=== PATIENT | female | born 1995 | race Caucasian/White ===

== ENCOUNTER → 2017-02-13 | Outpatient (CLI) | payer BC ==
[2017-02-13 10:53] LABS: CHLORIDE,CL 105 mmol/L (98-110); SODIUM,NA 136 mmol/L (136-146)
== END | disposition home or self-care (01) ==
LOC: MW.CHFP 09:47
PROVIDERS: ATTEND Physician Assistant
DX: E86.0 Dehydration (principal)
CPT/HCPCS: 36415; 80053; 83690; 85025

== ENCOUNTER → 2017-02-15 | Outpatient (CLI) | payer BC | LOC: MW.CHIM 11:09 | PROVIDERS: ATTEND Internal Medicine | DX: Z00.00 Encounter for general adult medical examination without abnormal findings (principal); R11.2 Nausea with vomiting, unspecified; N23 Unspecified renal colic | CPT/HCPCS: 81001; 81025 ==

== ENCOUNTER 2017-11-15 20:56 | Emergency (ER) | payer MEDICAID ==
--- NOTE | 2017-11-15 21:23 | EDM.PDOC ---
ED HPI GENERAL MEDICAL PROBLEM - General Chief Complaint: Respiratory Problem Stated Complaint: PT HAS FLU SYMPTOMS Time Seen by Provider: 11/15/17 21:14 - History of Present Illness INITIAL COMMENTS - FREE TEXT/NARRATIVE: HISTORY AND PHYSICAL: History of present illness: Patient 22-year-old female is approximately 20 weeks presents with concern of cough congestion and body aches. She's had no vaginal discharge bleeding abdominal pain or other concern Review of systems: As per history of present illness and below otherwise all systems reviewed and negative. Past medical history: As per history of present illness and as reviewed below otherwise noncontributory. Surgical history: As per history of present illness and as reviewed below otherwise noncontributory. Social history: No reported history of drug or alcohol abuse. Family history: As per history of present illness and as reviewed below otherwise noncontributory. Physical exam: HEENT: Atraumatic, normocephalic, pupils reactive, negative for conjunctival pallor or scleral icterus, mucous membranes moist, throat clear, neck supple, nontender, trachea midline. Lungs: Clear to auscultation, breath sounds equal bilaterally, chest nontender. Heart: S1S2, regular, negative for clicks, rubs, or JVD. Abdomen: Soft, nondistended, nontender. Negative for masses or hepatosplenomegaly. Negative for costovertebral tenderness. Pelvis: Stable nontender. Genitourinary: Deferred. Rectal: Deferred. Extremities: Atraumatic, negative for cords or calf pain. Neurovascular unremarkable. Neuro: Awake, alert, oriented. Cranial nerves II through XII unremarkable. Cerebellum unremarkable. Motor and sensory unremarkable throughout. Exam nonfocal. Diagnostics: Influenza screen Therapeutics: None Impression: # 1 viral syndrome #2 history 20 week intrauterine Definitive disposition and diagnosis as appropriate pending reevaluation and review of above. generalized Pain Score (Numeric/FACES): 7 - Related Data Allergies Allergy/AdvReac Type Severity Reaction Status Date / Time No Known Allergies Allergy Verified 11/15/17 21:13 Home Meds: Home Meds Pnv No.122/Iron/Folic Acid [ Multi Tablet] 1 tab PO DAILY 11/15/17 [ History] ED ROS GENERAL - Review of Systems Review Of Systems: ROS reveals no pertinent complaints other than HPI. ED EXAM, GENERAL - Physical Exam Exam: See Below (dictation) Course - Vital Signs Last Recorded V/S: Last Vital Signs Temp 36.6 C 11/15/17 21:14 Pulse 118 H 11/15/17 21:14 Resp 19 11/15/17 21:14 BP 113/61 11/15/17 21:14 Pulse Ox 97 11/15/17 21:14 Departure - Departure Time of Disposition: 22:00 Disposition: Home, Self-Care 01 Condition: Good Clinical Impression: Influenza - Discharge Information Referrals: PCP,None [Primary Care Provider] - Forms: ED Department Discharge Additional Instructions: The following information is given to patients seen in the emergency department who are being discharged to home. This information is to outline your options for follow-up care. We provide all patients seen in our emergency department with a follow-up referral. The need for follow-up, as well as the timing and circumstances, are variable depending upon the specifics of your emergency department visit. If you don't have a primary care physician on staff, we will provide you with a referral. We always advise you to contact your personal physician following an emergency department visit to inform them of the circumstance of the visit and for follow-up with them and/or the need for any referrals to a consulting specialist. The emergency department will also refer you to a specialist when appropriate. This referral assures that you have the opportunity for followup care with a specialist. All of these measure are taken in an effort to provide you with optimal care, which includes your followup. Under all circumstances we always encourage you to contact your private physician who remains a resource for coordinating your care. When calling for followup care, please make the office aware that this follow-up is from your recent emergency room visit. If for any reason you are refused follow-up, please contact the [facility] emergency department at and asked to speak to the emergency department charge nurse. Tamiflu as prescribed push fluids Tylenol as directed follow-up medical doctor as needed as discussed and return as needed as discussed
== END 2017-11-15 22:12 | disposition home or self-care (01) ==
LOC: MW.ED 20:56
DX: O99.512 Diseases of the respiratory system complicating pregnancy, second trimester (principal); J10.1 Influenza due to other identified influenza virus with other respiratory manifestations; O98.512 Other viral diseases complicating pregnancy, second trimester; B34.9 Viral infection, unspecified; Z3A.20 20 weeks gestation of pregnancy
CPT/HCPCS: 87804; 99282; 99284

== ENCOUNTER 2018-03-23 23:47 | Inpatient (IN) | payer MEDICAID ==
[2018-03-24] MEDS ORDERED: Sodium Chloride 0.9% 2.5 ML Syringe FLUSH PRN (01:58)
[2018-03-24] MEDS ORDERED: Nalbuphine 10 MG/1 ML Vial IVPUSH PRN (01:58)
[2018-03-24] MEDS ORDERED: Misoprostol 200 MCG Tab PO PRN (01:58)
[2018-03-24] MEDS ORDERED: Carboprost Tromethamine 250 MCG/1 ML Amp IM PRN (01:58)
[2018-03-24] MEDS ORDERED: Tranexamic Acid 1,000 MG in Sodium Chloride 0.9% 100 ML IV PRN (01:58)
[2018-03-24] MEDS ORDERED: Terbutaline 1 MG/ML SDV SUBCUT PRN (01:58)
[2018-03-24] MEDS ORDERED: Misoprostol 25 MCG (1/4 of 100 MCG) Tab VAG PRN (01:58)
[2018-03-24] MEDS ORDERED: Ondansetron 4 MG/2 ML SDV IV PRN (01:58)
[2018-03-24] MEDS ORDERED: Sodium Chloride 0.9% 10 ML Syringe FLUSH PRN (01:58)
[2018-03-24] MEDS ORDERED: Misoprostol 25 MCG (1/4 of 100 MCG) Tab PO PRN (01:58)
[2018-03-24] MEDS ORDERED: Water For Irrigation,Sterile 1,000 ML Container IRR PRN (01:58)
[2018-03-24] MEDS ORDERED: Methylergonovine 0.2 MG/1 ML Amp IM PRN (01:58)
[2018-03-24] MEDS ORDERED: Lidocaine 1% 50 ML MDV INJECT PRN (01:58)
[2018-03-24] MEDS ORDERED: Oxytocin/0.9 % Sodium Chloride 30 UNIT/500 ML BAG IV SCH ×2 (02:00)
[2018-03-24] MEDS ORDERED: hydrOXYzine Pamoate 25 MG Cap PO PRN (02:02)
[2018-03-24] MEDS: Lactated Ringers 1,000 ML IV SCH ×2 (06:34→09:23)
[2018-03-24] MEDS ORDERED: fentaNYL 100 MCG/2 ML SDV ONE (08:59)
[2018-03-24] MEDS ORDERED: Ropivacaine HCl/PF 100 ML ONE (09:00)
--- NOTE | 2018-03-24 09:55 | PCM.PREANE ---
Preanesthetic Assessment - Procedure Proposed Procedure: ELYSE - Anesthesia/Transfusion/Family Hx Anesthesia History: No Prior Anesthesia Transfusion History: No Prior Transfusion(s) - Review of Systems General: No Symptoms Pulmonary: No Symptoms Cardiovascular: No Symptoms Gastrointestinal: No Symptoms Neurological: No Symptoms Other: Reports: None - Physical Assessment Height: 1.63 m Weight: 67.132 kg ASA Class: 1 Mental Status: Alert & Oriented x3 Dentition: Reports: Normal Dentition Lungs: Clear to Auscultation, Normal Respiratory Effort Cardiovascular: Regular Rate, Regular Rhythm - Lab Values: Laboratory Last Values WBC 8.79 K/uL (4.0-11.0) 03/24/18 01:58 RBC 4.22 M/uL (4.30-5.90) L 03/24/18 01:58 Hgb 11.2 g/dL (12.0-16.0) L 03/24/18 01:58 Hct 34.5 % (36.0-46.0) L 03/24/18 01:58 MCV 81.8 fL (80.0-98.0) 03/24/18 01:58 MCH 26.5 pg (27.0-32.0) L 03/24/18 01:58 MCHC 32.5 g/dL (31.0-37.0) 03/24/18 01:58 RDW Std Deviation 40.4 fl (28.0-62.0) 03/24/18 01:58 RDW Coeff of Kaden 14 % (11.0-15.0) 03/24/18 01:58 Plt Count 266 K/uL (150-400) 03/24/18 01:58 MPV 10.00 fL (7.40-12.00) 03/24/18 01:58 Nucleated RBC % 0.0 /100WBC 03/24/18 01:58 Nucleated RBCs # 0 K/uL 03/24/18 01:58 Blood Type A POSITIVE 03/24/18 01:15 Antibody Screen NEGATIVE 03/24/18 01:15 - Allergies Allergies/Adverse Reactions: Allergies Allergy/AdvReac Type Severity Reaction Status Date / Time No Known Allergies Allergy Verified 01/14/18 10:16 - Blood Blood Available: Yes Product(s) Available: None - Anesthesia Plan Pre-Op Medication Ordered: None - Acknowledgements Anesthesia Type Planned: Epidural Pt an Appropriate Candidate for the Planned Anesthesia: Yes Alternatives and Risks of Anesthesia Discussed w Pt/Guardian: Yes Pt/Guardian Understands and Agrees with Anesthesia Plan: Yes PreAnesthesia Questionnaire HEENT History: Reports: None Cardiovascular History: Reports: None Respiratory History: Reports: None Gastrointestinal History: Reports: None Genitourinary History: Reports: None [employer] History: Reports: Musculoskeletal History: Reports: None Neurological History: Reports: None Psychiatric History: Reports: None Endocrine/Metabolic History: Reports: None Hematologic History: Reports: None Immunologic History: Reports: None Oncologic (Cancer) History: Reports: None Dermatologic History: Reports: None - Infectious Disease History Infectious Disease History: Reports: None - Past Surgical History Head Surgeries/Procedures: Reports: None - SUBSTANCE USE Smoking Status *Q: Former Smoker Tobacco Use Within Last Twelve Months: No - HOME MEDS Home Medications: Home Meds . [No Known Home Meds] 03/23/18 [History] - CURRENT (IN HOUSE) MEDS Current Meds: Current Medications Carboprost Tromethamine (Hemabate Ds) 250 mcg IM ASDIRECTED PRN PRN Reason: Post Hemorrhage Hydroxyzine Pamoate (Vistaril) 50 mg PO BEDTIME PRN PRN Reason: at night Last Admin: 03/24/18 02:14 Dose: 50 mg Lactated Ringer's (Ringers, Lactated) 1,000 mls @ 150 mls/hr IV ASDIRECTED JUSTINA Last Admin: 03/24/18 09:23 Dose: 150 mls/hr Oxytocin/Sodium Chloride (Oxytocin 30 Unit/500 Ml-Ns) 30 unit in 500 mls @ 500 mls/hr IV TITRATE JUSTINA Oxytocin/Sodium Chloride (Oxytocin 30 Unit/500 Ml-Ns) 30 unit in 500 mls @ 2 mls/hr IV TITRATE JUSTINA; Protocol Last Titration: 03/24/18 08:00 Dose: 8 munits/min, 8 mls/hr Tranexamic Acid 1,000 mg/ (Sodium Chloride) 110 mls @ 660 mls/hr IV ONETIME PRN PRN Reason: Bleeding Lidocaine HCl (Xylocaine 1%) 50 ml INJECT .ONCE PRN PRN Reason: Laceration repair Methylergonovine Maleate (Methergine) 0.2 mg IM ASDIRECTED PRN PRN Reason: Post Hemorrhage Misoprostol (Cytotec) 200 mcg PO .ONCE PRN PRN Reason: Post Hemorrhage Misoprostol (Cytotec) 25 mcg VAG Q4H PRN PRN Reason: Cervical Ripening Last Admin: 03/24/18 02:14 Dose: 25 mcg Misoprostol (Cytotec) 25 mcg PO Q4H PRN PRN Reason: Cervical Ripening Last Admin: 03/24/18 02:14 Dose: 25 mcg Nalbuphine HCl (Nubain) 10 mg IVPUSH Q1H PRN PRN Reason: Pain (severe 7-10) Ondansetron HCl (Zofran) 4 mg IV Q4H PRN PRN Reason: Nausea/Vomiting Sodium Chloride (Saline Flush) 10 ml FLUSH ASDIRECTED PRN PRN Reason: Keep Vein Open Sodium Chloride (Saline Flush) 2.5 ml FLUSH ASDIRECTED PRN PRN Reason: Keep Vein Open Sterile Water (Sterile Water For Irrigation) 1,000 ml IRR ASDIRECTED PRN PRN Reason: delivery Terbutaline Sulfate (Brethine) 0.25 mg SUBCUT ASDIRECTED PRN PRN Reason: Tacysystole Discontinued Medications Fentanyl (Sublimaze) Confirm Administered Dose 100 mcg .ROUTE .STK-MED ONE Stop: 03/24/18 09:00 Ropivacaine (Naropin 0.2%) Confirm Administered Dose 100 mls @ as directed .ROUTE .STK-MED ONE Stop: 03/24/18 09:01
[2018-03-24] MEDS ORDERED: Acetaminophen 500 MG Tab PO PRN ×2 (13:29)
[2018-03-24] MEDS ORDERED: Lanolin 100% Cream 7 GM Tube TOP PRN (13:29)
[2018-03-24] MEDS ORDERED: Bisacodyl 10 MG Supp RECTAL PRN (13:29)
[2018-03-24] MEDS ORDERED: oxyCODONE 5 MG Tab PO PRN (13:29)
[2018-03-24] MEDS ORDERED: Ibuprofen 400 MG Tab PO PRN (13:29)
[2018-03-24] MEDS ORDERED: Benzocaine/Menthol 20%-0.5% Spray 78 GM Cannister TOP PRN (13:29)
[2018-03-24] MEDS ORDERED: Docusate Sodium 100 MG Cap PO PRN (13:29)
[2018-03-24] MEDS ORDERED: Witch Hazel Medicated Pads 40/Jar TOP PRN (13:29)
[2018-03-24] MEDS ORDERED: Witch Hazel Medicated Pads 40/Jar TOP ONE (13:48)
[2018-03-24] MEDS: Ibuprofen 800 MG Tab PO PRN ×2 (13:55→19:29)
--- NOTE | 2018-03-24 18:48 | PCM48HPAN ---
Post Anesthesia Note - EVALUATION WITHIN 48HRS OF ANESTHETIC Vital Signs in Normal Range: Yes Patient Participated in Evaluation: Yes Respiratory Function Stable: Yes Airway Patent: Yes Cardiovascular Function Stable: Yes Hydration Status Stable: Yes Pain Control Satisfactory: Yes Nausea and Vomiting Control Satisfactory: Yes Mental Status Recovered: Yes
--- NOTE | 2018-03-25 06:56 | PCM.PNPP ---
- General Info Date of Service: 03/25/18 Functional Status: Reports: Pain Controlled, Tolerating Diet, Ambulating, Urinating - Review of Systems General: Denies: Fever, Weakness Pulmonary: Denies: Shortness of Breath Cardiovascular: Denies: Chest Pain, Palpitations, Lightheadedness Gastrointestinal: Denies: Abdominal Pain, Nausea, Vomiting Genitourinary: Denies: Flank Pain Neurological: Reports: No Symptoms Psychiatric: Reports: No Symptoms - General Info Date of Service: 03/25/18 - Patient Data Vital Signs - Most Recent: Last Vital Signs Temp 36.1 C 03/25/18 04:00 Pulse 69 03/25/18 04:00 Resp 14 03/25/18 04:00 BP 97/54 L 03/25/18 04:00 Pulse Ox 98 03/25/18 04:00 Weight - Most Recent: 67.132 kg I&O - Last 24 Hours: Intake & Output 03/24/18 03/24/18 03/25/18 14:59 22:59 06:59 Output Total 175 Balance -175 Lab Results - Last 24 Hours: Laboratory Results - last 24 hr 03/24/18 03/25/18 Range/Units 12:59 04:50 Hgb 9.6 L (12.0-16.0) g/dL Hct 29.4 L (36.0-46.0) % Cord ABG pH 7.341 (7.18-7.38) Cord ABG Base Excess -2 (-10--2) Cord VBG pH 7.390 (7.25-7.45) Cord VBG Base Excess -3 (-10--2) Med Orders - Current: Current Medications Acetaminophen (Tylenol Extra Strength) 500 mg PO Q4H PRN PRN Reason: Pain Acetaminophen (Tylenol Extra Strength) 1,000 mg PO Q4H PRN PRN Reason: Pain Last Admin: 03/24/18 22:42 Dose: 1,000 mg Benzocaine/Menthol (Dermoplast Pain Relief 20%-0.5% [place]) 78 gm TOP ASDIRECTED PRN PRN Reason: Perineal Comfort Measure Last Admin: 03/24/18 13:55 Dose: 1 canister Bisacodyl (Dulcolax) 10 mg RECTAL .ONCE PRN PRN Reason: Constipation Carboprost Tromethamine (Hemabate Ds) 250 mcg IM ASDIRECTED PRN PRN Reason: Post Hemorrhage Docusate Sodium (Colace) 100 mg PO BID PRN PRN Reason: Constipation Emollient Ointment (Lansinoh Hpa) 0 gm TOP ASDIRECTED PRN PRN Reason: Sore Nipples Lactated Ringer's (Ringers, Lactated) 1,000 mls @ 150 mls/hr IV ASDIRECTED JUSTINA Last Admin: 03/24/18 09:23 Dose: 150 mls/hr Oxytocin/Sodium Chloride (Oxytocin 30 Unit/500 Ml-Ns) 30 unit in 500 mls @ 500 mls/hr IV TITRATE JUSTINA Oxytocin/Sodium Chloride (Oxytocin 30 Unit/500 Ml-Ns) 30 unit in 500 mls @ 2 mls/hr IV TITRATE JUSTINA; Protocol Last Titration: 03/24/18 13:09 Dose: 500 munits/min, 500 mls/hr Tranexamic Acid 1,000 mg/ (Sodium Chloride) 110 mls @ 660 mls/hr IV ONETIME PRN PRN Reason: Bleeding Ibuprofen (Motrin) 400 mg PO Q4H PRN PRN Reason: Pain Ibuprofen (Motrin) 800 mg PO Q6H PRN PRN Reason: Pain Last Admin: 03/24/18 19:29 Dose: 800 mg Methylergonovine Maleate (Methergine) 0.2 mg IM ASDIRECTED PRN PRN Reason: Post Hemorrhage Ondansetron HCl (Zofran) 4 mg IV Q4H PRN PRN Reason: Nausea/Vomiting Oxycodone HCl (Oxycodone) 5 mg PO Q2H PRN PRN Reason: Pain Sodium Chloride (Saline Flush) 10 ml FLUSH ASDIRECTED PRN PRN Reason: Keep Vein Open Sodium Chloride (Saline Flush) 2.5 ml FLUSH ASDIRECTED PRN PRN Reason: Keep Vein Open Witch Jacqueline (Tucks) 1 pad TOP ASDIRECTED PRN PRN Reason: comfort care Last Admin: 03/24/18 13:54 Dose: 1 tub Discontinued Medications Fentanyl (Sublimaze) Confirm Administered Dose 100 mcg .ROUTE .STK-MED ONE Stop: 03/24/18 09:00 Hydroxyzine Pamoate (Vistaril) 50 mg PO BEDTIME PRN PRN Reason: at night Last Admin: 03/24/18 02:14 Dose: 50 mg Ropivacaine (Naropin 0.2%) Confirm Administered Dose 100 mls @ as directed .ROUTE .Medcurrent ONE Stop: 03/24/18 09:01 Lidocaine HCl (Xylocaine 1%) 50 ml INJECT .ONCE PRN PRN Reason: Laceration repair Misoprostol (Cytotec) 200 mcg PO .ONCE PRN PRN Reason: Post Hemorrhage Misoprostol (Cytotec) 25 mcg VAG Q4H PRN PRN Reason: Cervical Ripening Last Admin: 03/24/18 02:14 Dose: 25 mcg Misoprostol (Cytotec) 25 mcg PO Q4H PRN PRN Reason: Cervical Ripening Last Admin: 03/24/18 02:14 Dose: 25 mcg Nalbuphine HCl (Nubain) 10 mg IVPUSH Q1H PRN PRN Reason: Pain (severe 7-10) Sterile Water (Sterile Water For Irrigation) 1,000 ml IRR ASDIRECTED PRN PRN Reason: delivery Last Admin: 03/24/18 12:55 Dose: 1,000 ml Terbutaline Sulfate (Brethine) 0.25 mg SUBCUT ASDIRECTED PRN PRN Reason: Tacysystole Fabian Phillips (Tucks) Confirm Administered Dose 1 pad TOP .Medcurrent ONE Stop: 03/24/18 13:49 - Interaction Support Person: Mother, Significant Other - Recovery Exam Fundal Tone: Firm Fundal Level: 2 Fingerbreadths Below Umbilicus Fundal Placement: Midline Lochia Amount: Small Lochia Color: Rubra/Red Perineum Description: Intact, Minimal Bruising/Swelling Episiotomy/Laceration: Approximated Bladder Status: Voiding Urinary Elimination: Voided - Exam General: Alert, Oriented Lungs: Normal Respiratory Effort Cardiovascular: Regular Rate, Regular Rhythm GI/Abdominal Exam: Normal Bowel Sounds, Soft Extremities: Pedal Edema (trace). No: Estela's Sign Skin: Warm, Dry, Intact Psy/Mental Status: Alert, Normal Affect - Problem List & Annotations (1) Vaginal delivery SNOMED Code(s): 748823975 Code(s): O80 - ENCOUNTER FOR FULL-TERM UNCOMPLICATED DELIVERY Status: Acute Current Visit: Yes - Problem List Review Problem List Initiated/Reviewed/Updated: Yes - My Orders Last 24 Hours: My Active Orders 03/24/18 13:29 Patient Status [ADT] Routine May Shower [RC] ASDIRECTED Up ad Lia [RC] ASDIRECTED Vital Signs [RC] PER UNIT ROUTINE Acetaminophen [Tylenol Extra Strength] 1,000 mg PO Q4H PRN Acetaminophen [Tylenol Extra Strength] 500 mg PO Q4H PRN Benzocaine/Menthol [Dermoplast Pain Relief 20%-0.5% [place]] 78 gm TOP ASDIRECTED PRN Bisacodyl [Dulcolax] 10 mg RECTAL .ONCE PRN Docusate Sodium [Colace] 100 mg PO BID PRN Ibuprofen [Motrin] 400 mg PO Q4H PRN Ibuprofen [Motrin] 800 mg PO Q6H PRN Lanolin [Lansinoh HPA] See Dose Instructions TOP ASDIRECTED PRN Witch Jacqueline [Tucks] 1 pad TOP ASDIRECTED PRN oxyCODONE 5 mg PO Q2H PRN Assess Lochia [WOMSER] Per Unit Routine Assess Uterine Involution [WOMSER] Per Unit Routine Breast Pump [WOMSER] Per Unit Routine Ice Therapy [OM.PC] Per Unit Routine Perineal Care [OM.PC] Per Unit Routine Peripheral IV Discontinue [OM.PC] Routine Sitz Bath [OM.PC] Per Unit Routine 03/24/18 Lunch Regular Diet [DIET] - Assessment Assessment:: PPD 1 status post - Plan Plan:: Continue cares. Patient would like to go home later today. Discharge instructions reviewed. Followup at clinic in 6 weeks. Infection and bleeding warnings reviewed.
--- NOTE | 2018-03-25 09:33 | OR ---
SURGEON: Barb Miller M.D. DATE OF PROCEDURE: 03/24/2018 PREOPERATIVE DIAGNOSES: 1. 39 and 1 weeks intrauterine . 2. Elective induction of labor. POSTOPERATIVE DIAGNOSES: 1. 39 and 1 weeks intrauterine . 2. Elective induction of labor. PROCEDURE: Spontaneous vaginal delivery; first-degree right labial laceration, repaired. ANESTHESIA: Epidural. ESTIMATED BLOOD LOSS: 350 mL. FINDINGS: Viable female with scores 9 at one minute, 9 at five minutes. Weight is pending. Spontaneous delivery, intact placenta, three-vessel cord. DISPOSITION: to [facility], mom in LDRP, stable. INDICATION FOR PROCEDURE: Yvrose is a 22-year-old, G2, P0-0-1-0, at 39 and 1 weeks gestational age, who was admitted on the surgical rn of 03/24/2018, for scheduled elective induction of labor due to social circumstances, her father and his will be on March 29. Risks of the procedure have been discussed and proper consent obtained. PROCEDURE IN DETAIL: The patient was admitted, routine labs were drawn. IV hydration was initiated. She underwent Cytotec ripening, responded to one dose and changed from 2 cm to 3 cm, 80% effaced, -1 station. Pitocin was initiated. The patient responded nicely to this. Max dose was 8 milliunits per minute. The patient began keyanna regularly, became increasingly uncomfortable and underwent regional anesthesia from epidural, became more comfortable. heart tones remained 130s with variability. Shortly before 11:00 a.m., amniotomy was performed, clear fluid was returned. At that time, the patient was found to be 5 cm, 90% effaced, -1 station. Shortly before 12:30 p.m., the patient was found to be complete, 100% effaced, +2 station. I was called for delivery. Upon my arrival, the patient was placed in modified dorsal lithotomy position, prepped and draped in the usual aseptic manner. She began pushing efforts and pushed readily. She pushed for just under 20 minutes, was able to deliver to 4+ station. Delivered the 's head atraumatically, spontaneously, followed by anterior shoulder, posterior shoulder, remainder of the body without difficulty. The infant's oropharynx and nares bulb suctioned, cord was clamped x2 and cut. was handed off to her mother, attending nursing staff side. Cord arterial, cord venous, cord blood sampling obtained. Light pressure was applied while the placenta was delivered spontaneously intact. Vigorous fundal uterine massage was then applied while 30 units of Pitocin delivered in 500 mL of IV fluid. Upon inspection of cervix, vaginal sidewalls, perineum, there was found to be a first-degree right labial laceration, repaired using 3-0 Polysorb in the usual fashion. Hemostasis appeared evident. Uterus remained firm. Hemostasis evident. Sponge count and needle count correct. The patient remained in LDRP, to [facility]. GLORIA / HENRIQUE /[id number]
[2018-03-25] MEDS: Ibuprofen 800 MG Tab PO PRN (10:51)
== END 2018-03-25 20:20 | disposition home or self-care (01) | DRG 775 ==
LOC: MW.OBCHECK 23:47 → MW.OB 23:49 → MW.OBCHECK 03-24 01:58 → MW.OB 03-24 01:58 → OBSVTOIN 03-24 12:59 → MW.OB 03-24 16:30
PROVIDERS: ADMIT Obstetrics & Gynecology; ATTEND Obstetrics & Gynecology
PROC: 10E0XZZ Delivery of Products of Conception, External Approach (ICD-10-PCS; principal; 2018-03-24)
PROC: 3E0P7VZ Introduction of Hormone into Female Reproductive, Via Natural or Artificial Opening (ICD-10-PCS; 2018-03-24)
PROC: 3E033VJ Introduction of Other Hormone into Peripheral Vein, Percutaneous Approach (ICD-10-PCS; 2018-03-24)
PROC: 10907ZC Drainage of Amniotic Fluid, Therapeutic from Products of Conception, Via Natural or Artificial Opening (ICD-10-PCS; 2018-03-24)
DX: O70.0 First degree perineal laceration during delivery (principal); Z3A.39 39 weeks gestation of pregnancy; Z37.0 Single live birth
CPT/HCPCS: 36415; 51702; 59025; 59409; 82803; 85014; 85018; 85027; 86850; 86900; 86901; A9270-GY; J2590; J2795; J3010; J7120

== ENCOUNTER 2019-05-11 19:44 | Inpatient (IN) | payer BC ==
[2019-05-11] MEDS ORDERED: Nalbuphine 10 MG/1 ML Vial IVPUSH PRN (20:02)
[2019-05-11] MEDS ORDERED: Sodium Chloride 0.9% 10 ML SDV IV PRN (20:02)
[2019-05-11] MEDS ORDERED: Sodium Chloride 0.9% 10 ML Syringe FLUSH PRN (20:02)
[2019-05-11] MEDS ORDERED: Lidocaine 1% 50 ML MDV INJECT PRN (20:02)
[2019-05-11] MEDS ORDERED: Tranexamic Acid 1,000 MG in Sodium Chloride 0.9% 100 ML IV PRN (20:02)
[2019-05-11] MEDS ORDERED: Water For Irrigation,Sterile 1,000 ML Container IRR PRN (20:02)
[2019-05-11] MEDS ORDERED: Ondansetron 4 MG/2 ML SDV IVPUSH PRN (20:02)
[2019-05-11] MEDS ORDERED: Misoprostol 200 MCG Tab PO PRN (20:02)
[2019-05-11] MEDS ORDERED: Sodium Chloride 0.9% 2.5 ML Syringe FLUSH PRN (20:02)
[2019-05-11] MEDS ORDERED: Carboprost Tromethamine 250 MCG/1 ML Amp IM PRN (20:02)
[2019-05-11] MEDS ORDERED: Methylergonovine 0.2 MG/1 ML Amp IM PRN (20:02)
[2019-05-11] MEDS ORDERED: Butorphanol 1 MG/ML SDV IVPUSH PRN (20:02)
--- NOTE | 2019-05-11 20:08 | PCM.LDHP ---
L&D History of Present Illness - General Date of Service: 05/11/19 Admit Problem/Dx: Patient Status Order with Admit Dx/Problem 05/11/19 19:45 Patient Status [ADT] Routine Admission Diagnosis/Problem Admission Diagnosis/Problem 05/11/19 20:05 23yo EDC 05/17/2019 A+, RI, GBS neg. Active labor Source of Information: Patient History Limitations: Reports: No Limitations - History of Present Illness Timing/Duration: Reports: minutes: Location, : Reports: Abdomen Quality: Reports: Stabbing Improves with: Reports: None Worsens with: Reports: None Associated Symptoms: Reports: N - Related Data Allergies/Adverse Reactions: Allergies Allergy/AdvReac Type Severity Reaction Status Date / Time No Known Allergies Allergy Verified 01/14/18 10:16 Home Medications: Home Meds . 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: Musculoskeletal History: Reports: None Neurological History: Reports: None Psychiatric History: Reports: None Endocrine/Metabolic History: Reports: None Hematologic History: Reports: None Immunologic History: Reports: None Oncologic (Cancer) History: Reports: None Dermatologic History: Reports: None - Infectious Disease History Infectious Disease History: Reports: None - Past Surgical History Head Surgeries/Procedures: Reports: None Social & Family History - Family History Family Medical History: Noncontributory Oncologic: Reports: Lung, Other (See Below) Other Oncologic Family History: unknown - Caffeine Use Caffeine Use: Reports: Coffee H&P Review of Systems - Review of Systems: Review Of Systems: See Below General: Reports: No Symptoms HEENT: Reports: No Symptoms Pulmonary: Reports: No Symptoms Cardiovascular: Reports: No Symptoms Gastrointestinal: Reports: No Symptoms Genitourinary: Reports: No Symptoms Musculoskeletal: Reports: No Symptoms Skin: Reports: No Symptoms Psychiatric: Reports: No Symptoms Neurological: Reports: No Symptoms Hematologic/Lymphatic: Reports: No Symptoms Immunologic: Reports: No Symptoms L&D Exam - Exam Exam: See Below - OB Specific Contraction Intensity: Strong Movement: Active Heart Tones: Present Heart Tones per Min: 155 Heart Rate (FHR) Variability: Moderate (6-25 bmp) Presentation: Vertex - Alvarez Score Alvarez Score Cervix Position: Anterior Alvarez Score Consistency: Soft Alvarez Score Effacement: >80% Alvarez Score Dilation: > 5 cm Alvarez Score 's Station: -2 Alvarez Score Total: 11 - Exam General: Alert, Oriented, Cooperative HEENT: Hearing Intact Lungs: Normal Respiratory Effort GI/Abdominal Exam: Soft, Non-Tender Rectal Exam: Deferred Genitourinary: Normal external exam, Cervical dilitation Back Exam: Full Range of Motion Extremities: Normal Inspection, Normal Range of Motion, Non-Tender, No Pedal Edema Skin: Warm, Dry, Intact Neurological: Cranial Nerves Intact, Strength Equal Bilateral, Normal Speech, Normal Tone Psychiatric: Alert, Normal Affect, Normal Mood - Problem List (1) Supervision of normal IUP (intrauterine ) in multigravida SNOMED Code(s): 533363226, 404707192, 888298329 ICD Code: Z34.80 - ENCOUNTER FOR SUPRVSN OF NORMAL , UNSP TRIMESTER Status: Acute Priority: High Current Visit: Yes Qualifiers: Trimester: third trimester Qualified Code(s): Z34.83 - Encounter for supervision of other normal , third trimester Problem List Initiated/Reviewed/Updated: Yes Orders Last 24hrs: Active Orders 24 hr Category Date Time Status Patient Status [ADT] Routine ADT 05/11/19 19:45 Ordered Heart Tones [RC] CONTINUOUS Care 05/11/19 20:02 Ordered Non Stress Test [RC] PER UNIT ROUTINE Care 05/11/19 20:02 Ordered May Shower [RC] ASDIRECTED Care 05/11/19 20:02 Ordered Notify Provider [RC] PRN Care 05/11/19 20:02 Ordered Up ad Lia [RC] ASDIRECTED Care 05/11/19 20:02 Ordered Vaginal Exam [RC] PRN Care 05/11/19 20:02 Ordered Vital Signs [RC] PER UNIT ROUTINE Care 05/11/19 20:02 Ordered CBC W/O DIFF,HEMOGRAM [HEME] Routine Lab 05/11/19 20:02 Ordered TYPE AND SCREEN [BBK] Routine Lab 05/11/19 20:02 Ordered Butorphanol [Stadol] Med 05/11/19 20:02 Ordered 1 mg IVPUSH Q1H PRN Carboprost Tromethamine [Hemabate DS] Med 05/11/19 20:02 Ordered 250 mcg IM ASDIRECTED PRN Lactated Ringers @ 150 MLS/HR(1000ml) Med 05/11/19 20:15 Ordered Lactated Ringers [Ringers, Lactated] 1,000 ml IV ASDIRECTED Lidocaine 1% [Xylocaine 1%] Med 05/11/19 20:02 Ordered 50 ml INJECT ONETIME PRN Methylergonovine [Methergine] Med 05/11/19 20:02 Ordered 0.2 mg IM ASDIRECTED PRN Nalbuphine [Nubain] Med 05/11/19 20:02 Ordered 10 mg IVPUSH Q1H PRN Ondansetron [Zofran] Med 05/11/19 20:02 Ordered 4 mg IVPUSH Q4H PRN Oxytocin/0.9 % Sodium Chloride [Oxytocin 30 Unit/500 ML Med 05/11/19 20:15 Ordered -NS] 30 unit in 500 ml IV TITRATE Sodium Chloride 0.9% [Normal Saline] Med 05/11/19 20:02 Ordered 10 ml IV ASDIRECTED PRN Sodium Chloride 0.9% [Saline Flush] Med 05/11/19 20:02 Ordered 10 ml FLUSH ASDIRECTED PRN Sodium Chloride 0.9% [Saline Flush] Med 05/11/19 20:02 Ordered 2.5 ml FLUSH ASDIRECTED PRN Tranexamic Acid [Cyklokapron] 1,000 mg Med 05/11/19 20:02 Ordered Sodium Chloride 0.9% [Normal Saline] 100 ml IV ONETIME Water For Irrigation,Sterile [Sterile Water for Med 05/11/19 20:02 Ordered Irrigation] 1,000 ml IRR ASDIRECTED PRN miSOPROStol [Cytotec] Med 05/11/19 20:02 Ordered 200 mcg PO ONETIME PRN Scalp Electrode [WOMSER] Per Unit Routine Oth 05/11/19 20:02 Ordered Peripheral IV Insertion Adult [OM.PC] Routine Oth 05/11/19 20:02 Ordered Resuscitation Status Routine Resus Stat 05/11/19 20:02 Ordered Assessment/Plan Comment:: Labor A: 23yo EDC 05/17/2019 A+, RI, GBS neg. Active labor P: Admit, epidural now, anticipate . Dr Cochran updated
[2019-05-11] MEDS ORDERED: Oxytocin/0.9 % Sodium Chloride 30 UNIT/500 ML BAG IV SCH (20:15)
[2019-05-11] MEDS: Lactated Ringers 1,000 ML IV SCH ×2 (20:15→20:41)
[2019-05-11] MEDS ORDERED: fentaNYL 100 MCG/2 ML SDV ONE (21:14)
--- NOTE | 2019-05-12 00:01 | PCM.DEL ---
<Nicole Gore R - Last Filed: 05/11/19 23:56> L & D Note - General Info Date of Service: 05/11/19 Mother's Due Date: 05/17/19 - Delivery Note Labor: Spontaneous Delivery Outcome: Livebirth Delivery Method: Spontaneous Vaginal Delivery-Single Presentation: Vertex Nuchal Cord: Present, Reduced Anesthesia Type: Epidural Amniotic Fluid Description: Clear Episiotomy Type: None Laceration: None Placenta: Intact, Spontaneous Cord: 3 Vessels Estimated Blood Loss: 150 Resuscitation Needed: No [place]: Bulb Syringe, Stimulated Provider: Lilibeth Carlos Score 1 min: 9 Score 5 min: 9 Second Stage Interventions: Reports: Second Nurse Assessed Progress of Descent, Second Nurse Reviewed Contraction Pattern, Second Nurse Reviewed Heart Tones, Encouragement Given, Pushing Effectively Delivery Comments (Free Text/Narrative):: viable male, 9/9, head delivered, nuchal x1, baby to mom's abdomen skin to skin for assessment, placenta delivered grossly intact, 3VC, EBL 150 mL , perineum intact, pitocin to IVF, VSS, mom and baby left in stable condition with nurse at bedside for assessment - General Info Date of Service: 05/12/19 Admission Dx/Problem (Free Text): Patient Status Order with Admit Dx/Problem 05/11/19 19:45 Patient Status [ADT] Routine Admission Diagnosis/Problem Admission Diagnosis/Problem 05/11/19 20:05 23yo EDC 05/17/2019 A+, RI, GBS neg. Active labor Functional Status: Reports: Pain Controlled - Review of Systems General: Reports: No Symptoms HEENT: Reports: No Symptoms Pulmonary: Reports: No Symptoms Cardiovascular: Reports: No Symptoms Gastrointestinal: Reports: No Symptoms Genitourinary: Reports: No Symptoms Musculoskeletal: Reports: No Symptoms Skin: Reports: No Symptoms Neurological: Reports: No Symptoms Psychiatric: Reports: No Symptoms - Patient Data Lab Results Last 24 Hours: Laboratory Results - last 24 hr 05/11/19 05/11/19 Range/Units 20:15 20:15 WBC 9.55 (4.0-11.0) K/uL RBC 4.36 (4.30-5.90) M/uL Hgb 10.9 L (12.0-16.0) g/dL Hct 34.8 L (36.0-46.0) % MCV 79.8 L (80.0-98.0) fL MCH 25.0 L (27.0-32.0) pg MCHC 31.3 (31.0-37.0) g/dL RDW Std Deviation 39.1 (28.0-62.0) fl RDW Coeff of Kaden 14 (11.0-15.0) % Plt Count 238 (150-400) K/uL MPV 9.60 (7.40-12.00) fL Nucleated RBC % 0.0 /100WBC Nucleated RBCs # 0 K/uL Blood Type A POSITIVE Antibody Screen NEGATIVE Med Orders - Current: Current Medications Butorphanol Tartrate (Stadol) 1 mg IVPUSH Q1H PRN PRN Reason: Pain Carboprost Tromethamine (Hemabate Ds) 250 mcg IM ASDIRECTED PRN PRN Reason: Post Hemorrhage Lactated Ringer's (Ringers, Lactated) 1,000 mls @ 150 mls/hr IV ASDIRECTED [facility] Last Admin: 05/11/19 20:41 Dose: 999 mls/hr Oxytocin/Sodium Chloride (Oxytocin 30 Unit/500 Ml-Ns) 30 unit in 500 mls @ 555 mls/hr IV TITRATE [facility] Tranexamic Acid 1,000 mg/ (Sodium Chloride) 110 mls @ 660 mls/hr IV ONETIME PRN PRN Reason: Bleeding Lidocaine HCl (Xylocaine 1%) 50 ml INJECT ONETIME PRN PRN Reason: Laceration repair Methylergonovine Maleate (Methergine) 0.2 mg IM ASDIRECTED PRN PRN Reason: Post Hemorrhage Misoprostol (Cytotec) 200 mcg PO ONETIME PRN PRN Reason: Post Hemorrhage Nalbuphine HCl (Nubain) 10 mg IVPUSH Q1H PRN PRN Reason: Pain (severe 7-10) Ondansetron HCl (Zofran) 4 mg IVPUSH Q4H PRN PRN Reason: Nausea/Vomiting Sodium Chloride (Saline Flush) 10 ml FLUSH ASDIRECTED PRN PRN Reason: Keep Vein Open Sodium Chloride (Saline Flush) 2.5 ml FLUSH ASDIRECTED PRN PRN Reason: Keep Vein Open Sodium Chloride (Normal Saline) 10 ml IV ASDIRECTED PRN PRN Reason: IV Use Sterile Water (Sterile Water For Irrigation) 1,000 ml IRR ASDIRECTED PRN PRN Reason: delivery Discontinued Medications Fentanyl (Sublimaze) Confirm Administered Dose 100 mcg .ROUTE .STK-MED ONE Stop: 05/11/19 21:15 Fentanyl/Bupivacaine HCl (Lcqbwexo-Eqcju-Zl 2 Mcg/Ml-0.125%) Confirm Administered Dose 100 mls @ as directed .ROUTE .STK-MED ONE Stop: 05/11/19 21:15 - Exam General: Alert, Oriented, Cooperative, No Acute Distress Lungs: Normal Respiratory Effort (Female) Exam: Normal External Exam, Normal Bimanual Exam Back Exam: Full Range of Motion Extremities: Normal Inspection Skin: Warm, Dry, Intact Neurological: No New Focal Deficit, Normal Speech, Normal Tone Psy/Mental Status: Alert, Normal Affect, Normal Mood - Problem List & Annotations (1) (normal spontaneous vaginal delivery) SNOMED Code(s): 12344167, 050102469 Code(s): O80 - ENCOUNTER FOR FULL-TERM UNCOMPLICATED DELIVERY Status: Acute Priority: High Current Visit: Yes - Problem List Review Problem List Initiated/Reviewed/Updated: Yes - Plan Plan:: Labor A: 23yo EDC 05/17/2019 A+, RI, GBS neg. Active labor P: Admit, epidural now, anticipate . Dr Cochran updated Delivery A: viable male, APGARs 9/9, perineum intact, placenta delivered grossly intact, 3VC, EBL 150mL, Pitocin to IVF, VSS, mom and baby left in stable condition with nurse at bedside for assessment P: Routine plan of care, Dr. Cochran updated <Lilibeth Carlos - Last Filed: 05/12/19 04:43> - Patient Data Vitals - Most Recent: Last Vital Signs Temp 36.6 C 05/12/19 04:11 Pulse 67 05/12/19 04:11 Resp 16 05/12/19 04:11 BP 108/54 L 05/12/19 04:11 Pulse Ox 96 05/12/19 04:11 Lab Results Last 24 Hours: Laboratory Results - last 24 hr 05/11/19 05/11/19 Range/Units 20:15 20:15 WBC 9.55 (4.0-11.0) K/uL RBC 4.36 (4.30-5.90) M/uL Hgb 10.9 L (12.0-16.0) g/dL Hct 34.8 L (36.0-46.0) % MCV 79.8 L (80.0-98.0) fL MCH 25.0 L (27.0-32.0) pg MCHC 31.3 (31.0-37.0) g/dL RDW Std Deviation 39.1 (28.0-62.0) fl RDW Coeff of Kaden 14 (11.0-15.0) % Plt Count 238 (150-400) K/uL MPV 9.60 (7.40-12.00) fL Nucleated RBC % 0.0 /100WBC Nucleated RBCs # 0 K/uL Blood Type A POSITIVE Antibody Screen NEGATIVE Med Orders - Current: Current Medications Acetaminophen (Tylenol Extra Strength) 500 mg PO Q4H PRN PRN Reason: Pain Acetaminophen (Tylenol Extra Strength) 1,000 mg PO Q4H PRN PRN Reason: Pain Benzocaine/Menthol (Dermoplast Pain Relief 20%-0.5% [place]) 78 gm TOP ASDIRECTED PRN PRN Reason: Perineal Comfort Measure Bisacodyl (Dulcolax) 10 mg RECTAL ONETIME PRN PRN Reason: Constipation Docusate Sodium (Colace) 100 mg PO BID PRN PRN Reason: Constipation Emollient Ointment (Lansinoh Hpa) 0 gm TOP ASDIRECTED PRN PRN Reason: Sore Nipples Ibuprofen (Motrin) 400 mg PO Q4H PRN PRN Reason: Pain Ibuprofen (Motrin) 800 mg PO Q6H PRN PRN Reason: Pain Oxycodone HCl (Oxycodone) 5 mg PO Q2H PRN PRN Reason: Pain Witch Jacqueline (Tucks) 1 pad TOP ASDIRECTED PRN PRN Reason: comfort care Discontinued Medications Butorphanol Tartrate (Stadol) 1 mg IVPUSH Q1H PRN PRN Reason: Pain Stop: 05/12/19 00:05 Carboprost Tromethamine (Hemabate Ds) 250 mcg IM ASDIRECTED PRN PRN Reason: Post Hemorrhage Fentanyl (Sublimaze) Confirm Administered Dose 100 mcg .ROUTE .STK-MED ONE Stop: 05/11/19 21:15 Lactated Ringer's (Ringers, Lactated) 1,000 mls @ 150 mls/hr IV ASDIRECTED [facility] Last Admin: 05/11/19 20:41 Dose: 999 mls/hr Oxytocin/Sodium Chloride (Oxytocin 30 Unit/500 Ml-Ns) 30 unit in 500 mls @ 555 mls/hr IV TITRATE [facility] Tranexamic Acid 1,000 mg/ (Sodium Chloride) 110 mls @ 660 mls/hr IV ONETIME PRN PRN Reason: Bleeding Fentanyl/Bupivacaine HCl (Gycipwpg-Hyviq-Wj 2 Mcg/Ml-0.125%) Confirm Administered Dose 100 mls @ as directed .ROUTE .STK-MED ONE Stop: 05/11/19 21:15 Lidocaine HCl (Xylocaine 1%) 50 ml INJECT ONETIME PRN PRN Reason: Laceration repair Methylergonovine Maleate (Methergine) 0.2 mg IM ASDIRECTED PRN PRN Reason: Post Hemorrhage Misoprostol (Cytotec) 200 mcg PO ONETIME PRN PRN Reason: Post Hemorrhage Nalbuphine HCl (Nubain) 10 mg IVPUSH Q1H PRN PRN Reason: Pain (severe 7-10) Ondansetron HCl (Zofran) 4 mg IVPUSH Q4H PRN PRN Reason: Nausea/Vomiting Sodium Chloride (Saline Flush) 10 ml FLUSH ASDIRECTED PRN PRN Reason: Keep Vein Open Sodium Chloride (Saline Flush) 2.5 ml FLUSH ASDIRECTED PRN PRN Reason: Keep Vein Open Sodium Chloride (Normal Saline) 10 ml IV ASDIRECTED PRN PRN Reason: IV Use Sterile Water (Sterile Water For Irrigation) 1,000 ml IRR ASDIRECTED PRN PRN Reason: delivery - Problem List & Annotations (1) Supervision of normal IUP (intrauterine ) in multigravida SNOMED Code(s): 326570799, 587246618, 302497940 Code(s): Z34.80 - ENCOUNTER FOR SUPRVSN OF NORMAL , UNSP TRIMESTER Status: Acute Priority: High Current Visit: Yes Qualifiers: Trimester: third trimester Qualified Code(s): Z34.83 - Encounter for supervision of other normal , third trimester - Problem List Review Problem List Initiated/Reviewed/Updated: Yes - Plan Plan:: I attended the delivery and have read and agree with the note and plan of care.
[2019-05-12] MEDS ORDERED: Benzocaine/Menthol 20%-0.5% Spray 78 GM Cannister TOP PRN (00:07)
[2019-05-12] MEDS ORDERED: oxyCODONE 5 MG Tab PO PRN (00:07)
[2019-05-12] MEDS ORDERED: Bisacodyl 10 MG Supp RECTAL PRN (00:07)
[2019-05-12] MEDS ORDERED: Lanolin 100% Cream 7 GM Tube TOP PRN (00:07)
[2019-05-12] MEDS ORDERED: Ibuprofen 400 MG Tab PO PRN (00:07)
[2019-05-12] MEDS ORDERED: Docusate Sodium 100 MG Cap PO PRN (00:07)
[2019-05-12] MEDS ORDERED: Acetaminophen 500 MG Tab PO PRN ×2 (00:07)
[2019-05-12] MEDS ORDERED: Witch Hazel Medicated Pads 40/Jar TOP PRN (00:07)
[2019-05-12] MEDS: Ibuprofen 800 MG Tab PO PRN ×2 (08:50→17:39)
--- NOTE | 2019-05-12 09:19 | PCM.PNPP ---
- General Info Date of Service: 05/12/19 Admission Dx/Problem (Free Text): Patient Status Order with Admit Dx/Problem 05/11/19 19:45 Patient Status [ADT] Routine Admission Diagnosis/Problem Admission Diagnosis/Problem 05/11/19 20:05 23yo EDC 05/17/2019 A+, RI, GBS neg. Active labor Functional Status: Reports: Pain Controlled, Tolerating Diet, Ambulating, Urinating - Review of Systems General: Reports: No Symptoms HEENT: Reports: No Symptoms Pulmonary: Reports: No Symptoms Cardiovascular: Reports: No Symptoms Gastrointestinal: Reports: No Symptoms Genitourinary: Reports: No Symptoms Musculoskeletal: Reports: No Symptoms Skin: Reports: No Symptoms Neurological: Reports: No Symptoms Psychiatric: Reports: No Symptoms - Patient Data Vital Signs - Most Recent: Last Vital Signs Temp 36.6 C 05/12/19 04:11 Pulse 67 05/12/19 04:11 Resp 16 05/12/19 04:11 BP 108/54 L 05/12/19 04:11 Pulse Ox 96 05/12/19 04:11 Weight - Most Recent: 66.224 kg Lab Results - Last 24 Hours: Laboratory Results - last 24 hr 05/11/19 05/11/19 Range/Units 20:15 20:15 WBC 9.55 (4.0-11.0) K/uL RBC 4.36 (4.30-5.90) M/uL Hgb 10.9 L (12.0-16.0) g/dL Hct 34.8 L (36.0-46.0) % MCV 79.8 L (80.0-98.0) fL MCH 25.0 L (27.0-32.0) pg MCHC 31.3 (31.0-37.0) g/dL RDW Std Deviation 39.1 (28.0-62.0) fl RDW Coeff of Kaden 14 (11.0-15.0) % Plt Count 238 (150-400) K/uL MPV 9.60 (7.40-12.00) fL Nucleated RBC % 0.0 /100WBC Nucleated RBCs # 0 K/uL Blood Type A POSITIVE Antibody Screen NEGATIVE Med Orders - Current: Current Medications Acetaminophen (Tylenol Extra Strength) 500 mg PO Q4H PRN PRN Reason: Pain Acetaminophen (Tylenol Extra Strength) 1,000 mg PO Q4H PRN PRN Reason: Pain Benzocaine/Menthol (Dermoplast Pain Relief 20%-0.5% [place]) 78 gm TOP ASDIRECTED PRN PRN Reason: Perineal Comfort Measure Bisacodyl (Dulcolax) 10 mg RECTAL ONETIME PRN PRN Reason: Constipation Docusate Sodium (Colace) 100 mg PO BID PRN PRN Reason: Constipation Last Admin: 05/12/19 08:50 Dose: 100 mg Emollient Ointment (Lansinoh Hpa) 0 gm TOP ASDIRECTED PRN PRN Reason: Sore Nipples Last Admin: 05/12/19 08:50 Dose: 1 applic Ibuprofen (Motrin) 400 mg PO Q4H PRN PRN Reason: Pain Ibuprofen (Motrin) 800 mg PO Q6H PRN PRN Reason: Pain Last Admin: 05/12/19 08:50 Dose: 800 mg Oxycodone HCl (Oxycodone) 5 mg PO Q2H PRN PRN Reason: Pain Witch Jacqueline (Tucks) 1 pad TOP ASDIRECTED PRN PRN Reason: comfort care Last Admin: 05/12/19 08:49 Dose: 1 applic Discontinued Medications Butorphanol Tartrate (Stadol) 1 mg IVPUSH Q1H PRN PRN Reason: Pain Stop: 05/12/19 00:05 Carboprost Tromethamine (Hemabate Ds) 250 mcg IM ASDIRECTED PRN PRN Reason: Post Hemorrhage Fentanyl (Sublimaze) Confirm Administered Dose 100 mcg .ROUTE .STK-MED ONE Stop: 05/11/19 21:15 Lactated Ringer's (Ringers, Lactated) 1,000 mls @ 150 mls/hr IV ASDIRECTED [facility] Last Admin: 05/11/19 20:41 Dose: 999 mls/hr Oxytocin/Sodium Chloride (Oxytocin 30 Unit/500 Ml-Ns) 30 unit in 500 mls @ 555 mls/hr IV TITRATE [facility] Tranexamic Acid 1,000 mg/ (Sodium Chloride) 110 mls @ 660 mls/hr IV ONETIME PRN PRN Reason: Bleeding Fentanyl/Bupivacaine HCl (Ydanapck-Pgodh-Eh 2 Mcg/Ml-0.125%) Confirm Administered Dose 100 mls @ as directed .ROUTE .STK-MED ONE Stop: 05/11/19 21:15 Lidocaine HCl (Xylocaine 1%) 50 ml INJECT ONETIME PRN PRN Reason: Laceration repair Methylergonovine Maleate (Methergine) 0.2 mg IM ASDIRECTED PRN PRN Reason: Post Hemorrhage Misoprostol (Cytotec) 200 mcg PO ONETIME PRN PRN Reason: Post Hemorrhage Nalbuphine HCl (Nubain) 10 mg IVPUSH Q1H PRN PRN Reason: Pain (severe 7-10) Ondansetron HCl (Zofran) 4 mg IVPUSH Q4H PRN PRN Reason: Nausea/Vomiting Sodium Chloride (Saline Flush) 10 ml FLUSH ASDIRECTED PRN PRN Reason: Keep Vein Open Sodium Chloride (Saline Flush) 2.5 ml FLUSH ASDIRECTED PRN PRN Reason: Keep Vein Open Sodium Chloride (Normal Saline) 10 ml IV ASDIRECTED PRN PRN Reason: IV Use Sterile Water (Sterile Water For Irrigation) 1,000 ml IRR ASDIRECTED PRN PRN Reason: delivery - Infant Interaction Disposition, : in Room with Family Interaction: Holding Infant Feeding: Breastfed ; Nursed Well Support Person: - Recovery Exam Fundal Tone: Firm Fundal Level: 2 Fingerbreadths Below Umbilicus Fundal Placement: Midline Lochia Amount: Small Lochia Color: Rubra/Red Perineum Description: Intact, Minimal Bruising/Swelling Episiotomy/Laceration: None Bladder Status: Nonpalpable Urinary Elimination: Voided - Exam General: Alert, Oriented, Cooperative, No Acute Distress Lungs: Normal Respiratory Effort GI/Abdominal Exam: Soft, Non-Tender Extremities: Normal Range of Motion, No Pedal Edema Skin: Warm, Dry, Intact Neurological: No New Focal Deficit, Normal Speech, Normal Tone, Strength Equal Bilateral Psy/Mental Status: Alert, Normal Affect, Normal Mood - Problem List & Annotations (1) Supervision of normal IUP (intrauterine ) in multigravida SNOMED Code(s): 087015997, 065326472, 143900837 Code(s): Z34.80 - ENCOUNTER FOR SUPRVSN OF NORMAL , UNSP TRIMESTER Status: Acute Priority: High Current Visit: Yes Qualifiers: Trimester: third trimester Qualified Code(s): Z34.83 - Encounter for supervision of other normal , third trimester (2) (normal spontaneous vaginal delivery) SNOMED Code(s): 47154145, 196721017 Code(s): O80 - ENCOUNTER FOR FULL-TERM UNCOMPLICATED DELIVERY Status: Acute Priority: High Current Visit: Yes - Problem List Review Problem List Initiated/Reviewed/Updated: Yes - Plan Plan:: I attended the delivery and have read and agree with the note and plan of care. PPD1 A: VSS, AF, FF-2bu, lochia small, breast feeding well, c/o lower back pain has taken meds recently. Stable P: Continue pp POC
--- NOTE | 2019-05-13 08:39 | PCM.DCSUM1 ---
<Nicole Gore R - Last Filed: 05/13/19 08:36> Discharge Summary - Hospital Course Free Text/Narrative:: Discharge home with baby; follow at 6 weeks for visit and PRN Diagnosis: Stroke: No Modified [place] Scale: No Symptoms at All Modified [place] Scale Score: 0 - Discharge Data Discharge Date: 05/13/19 Discharge Disposition: Home, Self-Care 01 Condition: Good - Discharge Diagnosis/Problem(s) (1) (normal spontaneous vaginal delivery) SNOMED Code(s): 34564980, 474088540 ICD Code: O80 - ENCOUNTER FOR FULL-TERM UNCOMPLICATED DELIVERY Status: Acute Priority: High Current Visit: Yes - Patient Instructions Diet: Usual Diet as Tolerated Activity: As Tolerated, No Strenuous Activities, Rest and Relax Today Driving: May Drive Today Showering/Bathing: May Shower Notify Provider of: Fever, Increased Pain, Swelling and Redness, Drainage, Nausea and/or Vomiting - Discharge Plan *PRESCRIPTION DRUG MONITORING PROGRAM REVIEWED*: Not Applicable *COPY OF PRESCRIPTION DRUG MONITORING REPORT IN PATIENT [place]: Not Applicable Home Medications: Home Meds . [No Known Home Meds] 03/23/18 [History] Oxygen Therapy Mode: Room Air Patient Handouts: Vaginal Delivery, Vaginal Delivery, Care After Referrals: [facility] [Outside] Lilibeth Carlos CNM [Primary Care Provider] - 06/23/19 9:30 am - Discharge Summary/Plan Comment DC Time >30 min.: Yes Discharge Summary/Plan Comment: Discharge home with baby; follow at 6 weeks for visit and PRN - General Info Date of Service: 05/13/19 Admission Dx/Problem (Free Text: Patient Status Order with Admit Dx/Problem 05/11/19 19:45 Patient Status [ADT] Routine Admission Diagnosis/Problem Admission Diagnosis/Problem 05/11/19 20:05 23yo EDC 05/17/2019 A+, RI, GBS neg. Active labor Functional Status: Reports: Pain Controlled - Review of Systems General: Reports: No Symptoms HEENT: Reports: No Symptoms Pulmonary: Reports: No Symptoms Cardiovascular: Reports: No Symptoms Gastrointestinal: Reports: No Symptoms Genitourinary: Reports: No Symptoms Musculoskeletal: Reports: No Symptoms Skin: Reports: No Symptoms Neurological: Reports: No Symptoms Psychiatric: Reports: No Symptoms - Patient Data Vitals - Most Recent: Last Vital Signs Temp 36.6 C 05/13/19 04:16 Pulse 65 05/13/19 04:16 Resp 16 05/13/19 04:16 BP 119/60 05/13/19 04:16 Pulse Ox 97 05/13/19 04:16 Weight - Most Recent: 66.224 kg Med Orders - Current: Current Medications Acetaminophen (Tylenol Extra Strength) 500 mg PO Q4H PRN PRN Reason: Pain Acetaminophen (Tylenol Extra Strength) 1,000 mg PO Q4H PRN PRN Reason: Pain Benzocaine/Menthol (Dermoplast Pain Relief 20%-0.5% [place]) 78 gm TOP ASDIRECTED PRN PRN Reason: Perineal Comfort Measure Bisacodyl (Dulcolax) 10 mg RECTAL ONETIME PRN PRN Reason: Constipation Docusate Sodium (Colace) 100 mg PO BID PRN PRN Reason: Constipation Last Admin: 05/12/19 08:50 Dose: 100 mg Emollient Ointment (Lansinoh Hpa) 0 gm TOP ASDIRECTED PRN PRN Reason: Sore Nipples Last Admin: 05/12/19 08:50 Dose: 1 applic Ibuprofen (Motrin) 400 mg PO Q4H PRN PRN Reason: Pain Ibuprofen (Motrin) 800 mg PO Q6H PRN PRN Reason: Pain Last Admin: 05/12/19 17:39 Dose: 800 mg Oxycodone HCl (Oxycodone) 5 mg PO Q2H PRN PRN Reason: Pain Witch Jacqueline (Tucks) 1 pad TOP ASDIRECTED PRN PRN Reason: comfort care Last Admin: 05/12/19 08:49 Dose: 1 applic Discontinued Medications Butorphanol Tartrate (Stadol) 1 mg IVPUSH Q1H PRN PRN Reason: Pain Stop: 05/12/19 00:05 Carboprost Tromethamine (Hemabate Ds) 250 mcg IM ASDIRECTED PRN PRN Reason: Post Hemorrhage Fentanyl (Sublimaze) Confirm Administered Dose 100 mcg .ROUTE .STK-MED ONE Stop: 05/11/19 21:15 Lactated Ringer's (Ringers, Lactated) 1,000 mls @ 150 mls/hr IV ASDIRECTED JUSTINA Last Admin: 05/11/19 20:41 Dose: 999 mls/hr Oxytocin/Sodium Chloride (Oxytocin 30 Unit/500 Ml-Ns) 30 unit in 500 mls @ 555 mls/hr IV TITRATE JUSTINA Tranexamic Acid 1,000 mg/ (Sodium Chloride) 110 mls @ 660 mls/hr IV ONETIME PRN PRN Reason: Bleeding Fentanyl/Bupivacaine HCl (Xmsvooyz-Zuitu-Ym 2 Mcg/Ml-0.125%) Confirm Administered Dose 100 mls @ as directed .ROUTE .[facility]-MED ONE Stop: 05/11/19 21:15 Lidocaine HCl (Xylocaine 1%) 50 ml INJECT ONETIME PRN PRN Reason: Laceration repair Methylergonovine Maleate (Methergine) 0.2 mg IM ASDIRECTED PRN PRN Reason: Post Hemorrhage Misoprostol (Cytotec) 200 mcg PO ONETIME PRN PRN Reason: Post Hemorrhage Nalbuphine HCl (Nubain) 10 mg IVPUSH Q1H PRN PRN Reason: Pain (severe 7-10) Ondansetron HCl (Zofran) 4 mg IVPUSH Q4H PRN PRN Reason: Nausea/Vomiting Sodium Chloride (Saline Flush) 10 ml FLUSH ASDIRECTED PRN PRN Reason: Keep Vein Open Sodium Chloride (Saline Flush) 2.5 ml FLUSH ASDIRECTED PRN PRN Reason: Keep Vein Open Sodium Chloride (Normal Saline) 10 ml IV ASDIRECTED PRN PRN Reason: IV Use Sterile Water (Sterile Water For Irrigation) 1,000 ml IRR ASDIRECTED PRN PRN Reason: delivery - Exam General: Reports: Alert, Oriented, Cooperative, No Acute Distress Neck: Reports: Supple, Trachea Midline Lungs: Reports: Normal Respiratory Effort Cardiovascular: Reports: Regular Rate, Regular Rhythm GI/Abdominal Exam: Soft, Non-Tender (Female) Exam: Vaginal Bleeding Rectal (Female) Exam: Deferred Back Exam: Reports: Full Range of Motion Extremities: Normal Range of Motion, Non-Tender Skin: Reports: Warm, Dry, Intact Neurological: Reports: No New Focal Deficit, Normal Gait, Normal Speech, Normal Tone, Reflexes Equal Bilateral Psy/Mental Status: Reports: Alert, Normal Affect, Normal Mood <Lilibeth Carlos - Last Filed: 05/13/19 08:46> Discharge Summary - Discharge Diagnosis/Problem(s) (1) Supervision of normal IUP (intrauterine ) in multigravida SNOMED Code(s): 654782242, [id number], [id number] ICD Code: Z34.80 - ENCOUNTER FOR SUPRVSN OF NORMAL , UNSP TRIMESTER Status: Acute Priority: High Current Visit: Yes Qualifiers: Trimester: third trimester Qualified Code(s): Z34.83 - Encounter for supervision of other normal , third trimester (2) (normal spontaneous vaginal delivery) SNOMED Code(s): 84227824, [id number] ICD Code: O80 - ENCOUNTER FOR FULL-TERM UNCOMPLICATED DELIVERY Status: Acute Priority: High Current Visit: Yes - Patient Data Vitals - Most Recent: Last Vital Signs Temp 36.6 C 05/13/19 04:16 Pulse 65 05/13/19 04:16 Resp 16 05/13/19 04:16 BP 119/60 05/13/19 04:16 Pulse Ox 97 05/13/19 04:16 Med Orders - Current: Current Medications Acetaminophen (Tylenol Extra Strength) 500 mg PO Q4H PRN PRN Reason: Pain Acetaminophen (Tylenol Extra Strength) 1,000 mg PO Q4H PRN PRN Reason: Pain Benzocaine/Menthol (Dermoplast Pain Relief 20%-0.5% [place]) 78 gm TOP ASDIRECTED PRN PRN Reason: Perineal Comfort Measure Bisacodyl (Dulcolax) 10 mg RECTAL ONETIME PRN PRN Reason: Constipation Docusate Sodium (Colace) 100 mg PO BID PRN PRN Reason: Constipation Last Admin: 05/12/19 08:50 Dose: 100 mg Emollient Ointment (Lansinoh Hpa) 0 gm TOP ASDIRECTED PRN PRN Reason: Sore Nipples Last Admin: 05/12/19 08:50 Dose: 1 applic Ibuprofen (Motrin) 400 mg PO Q4H PRN PRN Reason: Pain Ibuprofen (Motrin) 800 mg PO Q6H PRN PRN Reason: Pain Last Admin: 05/12/19 17:39 Dose: 800 mg Oxycodone HCl (Oxycodone) 5 mg PO Q2H PRN PRN Reason: Pain Witch Jacqueline (Tucks) 1 pad TOP ASDIRECTED PRN PRN Reason: comfort care Last Admin: 05/12/19 08:49 Dose: 1 applic Discontinued Medications Butorphanol Tartrate (Stadol) 1 mg IVPUSH Q1H PRN PRN Reason: Pain Stop: 05/12/19 00:05 Carboprost Tromethamine (Hemabate Ds) 250 mcg IM ASDIRECTED PRN PRN Reason: Post Hemorrhage Fentanyl (Sublimaze) Confirm Administered Dose 100 mcg .ROUTE .STK-MED ONE Stop: 05/11/19 21:15 Lactated Ringer's (Ringers, Lactated) 1,000 mls @ 150 mls/hr IV ASDIRECTED JUSTINA Last Admin: 05/11/19 20:41 Dose: 999 mls/hr Oxytocin/Sodium Chloride (Oxytocin 30 Unit/500 Ml-Ns) 30 unit in 500 mls @ 555 mls/hr IV TITRATE JUSTINA Tranexamic Acid 1,000 mg/ (Sodium Chloride) 110 mls @ 660 mls/hr IV ONETIME PRN PRN Reason: Bleeding Fentanyl/Bupivacaine HCl (Aipeorsd-Bzchp-Ku 2 Mcg/Ml-0.125%) Confirm Administered Dose 100 mls @ as directed .ROUTE .STK-MED ONE Stop: 05/11/19 21:15 Lidocaine HCl (Xylocaine 1%) 50 ml INJECT ONETIME PRN PRN Reason: Laceration repair Methylergonovine Maleate (Methergine) 0.2 mg IM ASDIRECTED PRN PRN Reason: Post Hemorrhage Misoprostol (Cytotec) 200 mcg PO ONETIME PRN PRN Reason: Post Hemorrhage Nalbuphine HCl (Nubain) 10 mg IVPUSH Q1H PRN PRN Reason: Pain (severe 7-10) Ondansetron HCl (Zofran) 4 mg IVPUSH Q4H PRN PRN Reason: Nausea/Vomiting Sodium Chloride (Saline Flush) 10 ml FLUSH ASDIRECTED PRN PRN Reason: Keep Vein Open Sodium Chloride (Saline Flush) 2.5 ml FLUSH ASDIRECTED PRN PRN Reason: Keep Vein Open Sodium Chloride (Normal Saline) 10 ml IV ASDIRECTED PRN PRN Reason: IV Use Sterile Water (Sterile Water For Irrigation) 1,000 ml IRR ASDIRECTED PRN PRN Reason: delivery
== END 2019-05-13 10:45 | disposition home or self-care (01) | DRG 560 ==
LOC: MW.OBCHECK 19:44 → MW.OB 19:45 → OBSVTOIN 05-12 00:07 → MW.OB 05-12 04:14
PROVIDERS: ADMIT Obstetrics & Gynecology; ATTEND Obstetrics & Gynecology
PROC: 3E033VJ Introduction of Other Hormone into Peripheral Vein, Percutaneous Approach (ICD-10-PCS; principal; 2019-05-11)
PROC: 10E0XZZ Delivery of Products of Conception, External Approach (ICD-10-PCS; 2019-05-11)
DX: O69.81X0 Labor and delivery complicated by cord around neck, without compression, not applicable or unspecified (principal); Z37.0 Single live birth; Z3A.39 39 weeks gestation of pregnancy
CPT/HCPCS: 01967; 36415; 59025; 59409; 81003; 85027; 86850; 86900; 86901; A9270-GY; J7120

== ENCOUNTER 2024-06-13 19:32 | Emergency (ER) | payer BC ==
[2024-06-13] MEDS: Acetaminophen 500 MG Tab PO ONE (22:04)
[2024-06-13] MEDS: Ibuprofen 800 MG Tab PO ONE (22:04)
== END 2024-06-13 22:15 | disposition home or self-care (01) ==
LOC: MW.ED 19:32
DX: M25.531 Pain in right wrist (principal); Z75.8 Other problems related to medical facilities and other health care
CPT/HCPCS: 73110; 73130; 99283; A9270